=== PATIENT | male | born 1985 | race Caucasian/White ===

== ENCOUNTER 2018-11-28 08:04 | Emergency (ER) | payer SELFPAY ==
[~2018-11-28] VITALS: Ht 180.3 cm; Wt 98.0 kg
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
[2018-11-28 08:20] VITALS: BP 146/97
--- NOTE | 2018-11-28 08:20 | NUR ---
ED Nurse Note: Laceration on the right sided upper lip and abrasion noted on the left knee.
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
[2018-11-28] MEDS ORDERED: Lidocaine 1% 10mg/ml/Epi 0.005mg/ml 30ml vial INJ ONE (08:30)
[2018-11-28] MEDS ORDERED: Tetanus/Diptheria/Pertussis Vaccine 0.5ml Syr IM ONE (08:30)
[2018-11-28] MEDS ORDERED: ACETAMINOPHEN500 M3 ORAL ×2 (09:35→11:19)
[2018-11-28] MEDS ORDERED: CEPHALEXIN500 MG ORAL ×2 (09:35→11:19)
[2018-11-28] MEDS ORDERED: Bacitracin Oint UD TOPIC ONE ×2 (09:45→09:47)
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
[2018-11-28 10:53] VITALS: BP 138/95
[2018-11-28 10:54] VITALS: BP 138/95
--- NOTE | 2018-11-28 10:54 | NUR ---
ED Nurse Note: Pt cleared by health care Provider for discharge. DC instructions/prescription was given and explained to pt and verbalized understanding of teachings. All medical deviecs such as ID band removed. Pt is AAO x4, ambulatory and left with all personal belongings.
== END 2018-11-28 10:55 | disposition home or self-care (01) ==
LOC: EMR 08:25
DX: S01.511A Laceration without foreign body of lip, initial encounter (principal); S80.212A Abrasion, left knee, initial encounter; S80.211A Abrasion, right knee, initial encounter; S09.90XA Unspecified injury of head, initial encounter; Y04.2XXA Assault by strike against or bumped into by another person, initial encounter; Z23 Encounter for immunization
CPT/HCPCS: 70450; 90471; 90715; 99284